=== PATIENT | female | born 1975 | race Caucasian/White ===

== ENCOUNTER 2018-03-10 16:42 | Emergency (ER) | payer MEDICAID ==
[~2018-03-10] VITALS: Ht 157.5 cm; Wt 73.5 kg
[2018-03-10 16:53] VITALS: BP 120/75
--- NOTE | 2018-03-10 16:55 | NUR ---
43 Y/O F PRESENTS TO THE ED W/C/O C/O BRIGHT RED BLOOD IN LAST BM TODAY ASSOCIATED WITH PELVIC PAIN. DENIES DIZZINESS OR N/V. SKIN IS INTACT, PINK/WARM/DRY; AAOX4, PERRL, WITH EVEN AND STEADY GAIT; LUNGS CLEAR BL, BREATHING UNLABORED; HR EVEN AND REGULAR, BL PERIPHERAL PULSES PRESENT; BS ACTIVE X4, NO TENDERNESS TO PALPATION, NO HEPATOSPLENOMEGALLY PALPATED, RESONANT TO PERCUSSION; PT DENIES ANY FEVER, CP, SOB, OR COUGH AT THIS TIME; PT STATES 0/10 PAIN AT THIS TIME; VSS; PATIENT POSITIONED FOR COMFORT; HOB ELEVATED; BEDRAILS UP X2; BED DOWN. HX: LAP BAND 2008, GERD, IRON DEFICIENCY. NKA
--- NOTE | 2018-03-10 16:58 | NUR ---
PT AMBULATES TO BED11
[2018-03-10] MEDS ORDERED: NACL 0.9% 500 ML IV SCH (17:13)
[2018-03-10] MEDS ORDERED: NACL 0.9% 1,000 ML IV SCH (17:13)
[2018-03-10] MEDS ORDERED: PANTOPRAZOLE 40 MG INJ VIAL IVP ONE (17:15)
[2018-03-10] MEDS ORDERED: ONDANSETRON 4 MG/2 ML VIAL IVP ONE (17:15)
[2018-03-10 18:24] LABS: BASOPHILS % (AUTO) 0.6 % (0.0-2.0); EOSINOPHILS # (AUTO) 0.2 K/uL (0-0.4); EOSINOPHILS % (AUTO) 2.8 % (0.0-4.0); HEMATOCRIT 28.4 % (36-48); HEMOGLOBIN 8.8 g/dL (12.0-16.0); LYMPHOCYTES # (AUTO) 2.6 K/uL (2.5-16.5); LYMPHOCYTES % (AUTO) 30.6 % (20.5-51.1); MEAN CORPUSCULAR HEMOGLOBIN 20 pg (27-31); MEAN CORPUSCULAR HGB CONC 31 g/dL (33-37); MEAN CORPUSCULAR VOLUME 65.7 fL (80-94); MONOCYTES # (AUTO) 0.5 K/uL (0.8-1.0); NEUTROPHILS # (AUTO) 5.1 K/uL (1.8-7.7); PLATELET COUNT (AUTO) 455 K/uL (140-450); RED BLOOD CELL COUNT(AUTO) 4.32 MIL/uL (4.20-5.40); RED CELL DISTRIBUTION WIDTH 18.4 % (11.6-13.7); WHITE BLOOD COUNT (AUTO) 8.5 K/uL (4.8-10.8)
[2018-03-10 18:33] LABS: ALBUMIN 3.3 g/dL (3.4-5.0); ANION GAP 8.4 (8-16); CARBON DIOXIDE 29.2 mmol/L (21-32); CREATININE 0.7 mg/dL (0.6-1.3); POTASSIUM 3.6 mmol/L (3.5-5.1); TOTAL BILIRUBIN 0.2 mg/dL (0.0-1.0)
--- NOTE | 2018-03-10 18:40 | NUR ---
PT AMPULATED TO BATHROOM WITH STEADY GAIT
[2018-03-10 19:09] LABS: APPEARANCE,URINE CLEAR (CLEAR); BILIRUBIN,URINE NEGATIVE (NEGATIVE); BLOOD, URINE NEGATIVE (NEGATIVE); COLOR,URINE YELLOW (YELLOW); LEUKOCYTE ESTERASE ,URINE NEGATIVE (NEGATIVE); NITRITE, URINE POSITIVE (NEGATIVE); PH,URINE 7.5 (5.0-9.0); UGLUCOSE NEGATIVE (NEGATIVE)
[2018-03-10 19:12] LABS: RBC,URINE 0-5 (RARE) /HPF (0-5); WBC,URINE 0-5 (RARE) /HPF (0-5)
--- NOTE | 2018-03-10 19:17 | NUR ---
REPORT GIVEN TO DESEAN OLSON FOR CONTINUITY OF CARE
[2018-03-10] MEDS ORDERED: FERR75LI22 PO (19:25)
[2018-03-10] MEDS ORDERED: RANI-485 PO (19:25)
[2018-03-10 19:31] LABS: PROTHROMBIN TIME 9.9 secs (10.8-13.4)
--- NOTE | 2018-03-10 19:41 | NUR ---
PATIENT BACK FROM CT
--- NOTE | 2018-03-10 21:06 | NUR ---
REPORT GIVEN TO ANASTASIA AT [facility].
[2018-03-10 21:14] VITALS: BP 145/80
--- NOTE | 2018-03-10 21:14 | NUR ---
Patient to be transferred to [facility]. Is being transferred due to LOWER GI BLEED. Receiving facility has accepting physician and available space. ER physician has signed transfer form. Patient or responsible alliance party has agreed to transfer and signed form. Patient belongings inventoried and will be sent with patient. Copy of nursing notes, lab reports, EKG, Physicians Orders and X-rays to be sent with patient. Report called to ANASTASIA at receiving facility. [facility] ambulance service has been called for transfer. ETA is CURRENTLY IN FACILITY.
== END 2018-03-10 21:15 | disposition short-term general hospital (02) ==
LOC: MED 16:42
DX: K92.1 Melena (principal); D50.0 Iron deficiency anemia secondary to blood loss (chronic); K21.9 Gastro-esophageal reflux disease without esophagitis
CPT/HCPCS: 36415; 74176; 80053; 81001; 81025; 82150; 83690; 84703; 85025; 85610; 85730; 86886; 86900; 86901; 87086; 96374; 96375; 99285; C9113; J2405; J7030